=== PATIENT | female | born 1950 | race Caucasian/White ===

== ENCOUNTER 2016-11-28 07:45 | Inpatient (IN) | payer BC ==
[~2016-11-28] VITALS: Ht 175.3 cm; Wt 79.4 kg
[2016-11-28 08:33] LABS: CALCIUM 8.6 mg/dL (8.5-10.1); CARBON DIOXIDE 28.3 mmol/L (21-32); CHLORIDE SERUM 105 mmol/L (98-107); CREATININE SERUM 0.7 mg/dL (0.6-1.0); GFR1 > 60 mL/min; GLUCOSE SERUM 122 mg/dL (74-106); SODIUM SERUM 138 mmol/L (136-145)
[2016-11-28 08:37] LABS: ALKALINE PHOSPHATASE 76 U/L (46-116); ALT/SGPT 16 U/L (14-59); AST/SGOT 19 U/L (15-37); BILIRUBIN TOTAL 0.41 mg/dL (0.20-1.00); TOTAL PROTEIN, SERUM 7.9 g/dL (6.4-8.2)
[2016-11-28] MEDS ORDERED: METOPROLOL SUCC50 M2 PO (09:22)
[2016-11-28] MEDS ORDERED: HUMIRA40 MG/0.8 MR (09:22)
[2016-11-28] MEDS ORDERED: ASPIR 8181 MG PO ×2 (09:22→09:23)
[2016-11-28 09:54] LABS: BASOPHIL % 0.5 % (0-2); PLATELET COUNT 238 x10^3mcL (130-400); RED CELL DISTRIBUTION WIDTH 13.1 % (11.5-14.5)
[2016-11-28] MEDS ORDERED: LISINOPRIL10 MG PO (10:06)
[2016-11-28 10:40] LABS: T3 TOTAL 0.97 ng/mL
[2016-11-28 10:42] LABS: CHOLESTEROL/HDL RATIO 2.1; MAGNESIUM 1.9 mg/dL (1.8-2.4); PHOSPHOROUS 3.6 mg/dL (2.5-4.9)
[2016-11-28 10:50] LABS: FREE T4 0.9 ng/dL (0.76-1.46); FREE THYROXINE INDEX 1.9 ug/dL (1.4-4.5); T4(THYROXINE) 5.2 ug/dL (4.7-13.3)
[2016-11-28 11:05] VITALS: BP 158/80
[2016-11-28 13:54] VITALS: BP 126/78
[2016-11-28 16:23] LABS: UA SPECIFIC GRAVITY <=1.005 (1.005-1.035); microscopic required? YES; urine erythrocyte 1+ (NEGATIVE)
[2016-11-28 16:33] LABS: AMPHETAMINE QUAL UR NONE DETECTED (NEG <=1000)
[2016-11-28] MEDS ORDERED: ZOFI IV (16:36)
[2016-11-28] MEDS ORDERED: TYL325 PO (16:37)
[2016-11-28] MEDS ORDERED: COL100 PO (16:37)
[2016-11-28] MEDS ORDERED: MOR2I IV (16:37)
[2016-11-28] MEDS ORDERED: APAP/HYDROCODON1 T13 PO (16:38)
[2016-11-28] MEDS ORDERED: ZES10 PO (16:38)
[2016-11-28] MEDS ORDERED: TOP50 PO (16:38)
[2016-11-28] MEDS ORDERED: ECO81 PO (16:38)
[2016-11-28] MEDS ORDERED: NIT0.4 SL (16:39)
[2016-11-28] MEDS ORDERED: NIC14 TD (16:39)
[2016-11-28] MEDS ORDERED: LIPI10 PO (16:39)
[2016-11-28 18:45] VITALS: BP 141/88
[2016-11-28 21:14] VITALS: BP 149/93
== END 2016-11-28 21:30 | disposition short-term general hospital (02) | DRG 281 ==
LOC: ED 07:45 → DU 09:16
PROVIDERS: Emergency Medicine; ADMIT Family Medicine
DX: I21.4 Non-ST elevation (NSTEMI) myocardial infarction (principal); E44.0 Moderate protein-calorie malnutrition; R00.1 Bradycardia, unspecified; I10 Essential (primary) hypertension; L73.2 Hidradenitis suppurativa; R73.03 Prediabetes; Z68.25 Body mass index [BMI] 25.0-25.9, adult; F17.210 Nicotine dependence, cigarettes, uncomplicated
CPT/HCPCS: 83880; 84439; J1644; J7030; Q0092